=== PATIENT | male | born 1935 | race Caucasian/White ===

== ENCOUNTER 2021-10-04 07:33 | Outpatient (CLI) | payer OTHER | END 2021-10-04 08:31 | disposition home or self-care (01) | LOC: TOM 07:33 | PROVIDERS: ATTEND Internal Medicine Gastroenterology | DX: K56.50 Intestinal adhesions [bands], unspecified as to partial versus complete obstruction (principal); Z80.0 Family history of malignant neoplasm of digestive organs; Z86.010 Personal history of colon polyps ==